=== PATIENT | female | born 1955 | race Caucasian/White ===

== ENCOUNTER 2017-12-30 17:06 | Emergency (ER) | payer MEDICARE, MEDICAID ==
[2017-12-30 18:01] LABS: BASOPHILS 0.5 % (0-2); EOSINOPHILS 1.7 % (0-7); HEMATOCRIT 36.1 % (36.0-48.0); HEMOGLOBIN 11.6 g/dL (12-16); IMMATURE GRANULOCYTES 0.3 % (0-5); LYMPHOCYTES 22.7 % (15-50); MCH 23.8 pg (26.0-34.0); MCHC 32.1 g/dL (31.0-37.0); MEAN PLATELET VOLUME 9.9 fL (7.4-10.4); NEUTROPHILS 67.8 % (40-80); RBC 4.88 10x6/uL (4.00-5.40); RDW 15.9 % (11.5-14.5); WBC 10.4 10x3/uL (4.8-10.8)
[2017-12-30 18:06] LABS: PLATELET COUNT 261 10x3/uL (130-400)
[2017-12-30 18:20] LABS: ALBUMIN 3.3 g/dL (3.4-5.0); ALKALINE PHOSPHATASE 93 U/L (46-116); ALT (SGPT) 17 U/L (10-68); BILIRUBIN - TOTAL 0.21 mg/dL (0.2-1.3); CALC OSMOLALITY 275 mosm/kg (275-300); CALCIUM 9.3 mg/dL (8.5-10.1); CARBON DIOXIDE 25.8 mmol/L (21.0-32.0); CHLORIDE - SERUM 102 mmol/L (98-107); CREATININE - SERUM 0.9 mg/dL (0.6-1.3); GLUCOSE 157 mg/dL (74-106); POTASSIUM - SERUM 3.4 mmol/L (3.5-5.1); PROTEIN - SERUM 7.7 g/dL (6.4-8.2); SODIUM 136 mmol/L (136-145); UREA NITROGEN 15 mg/dL (7-18); eGFR NON AFRICAN AMERICAN 67 mL/min (90-120)
[2017-12-30 18:29] LABS: CKMB 0.6 U/L (0.0-3.6); CREATINE KINASE 58 UL (21-215); TROPONIN-I < 0.017 ng/mL (0.000-0.060)
== END 2017-12-30 23:00 | disposition home or self-care (01) ==
LOC: D.ER 17:06
PROVIDERS: Family Medicine
DX: R07.9 Chest pain, unspecified (principal); R07.89 Other chest pain; E11.9 Type 2 diabetes mellitus without complications; F17.200 Nicotine dependence, unspecified, uncomplicated

== ENCOUNTER 2019-02-18 09:00 | Outpatient (CLI) | payer MEDICARE, MEDICAID ==
--- NOTE | ~2019-02-18 | HEMODYNAMI ---
PATIENT:AXEL HERNANDEZ MEDICAL RECORD: [id number] : 55 LOCATION:D.CAT ADMISSION DATE: 02/18/19 Generatedon:02/18/201911:34 Patient name: AXEL HERNANDEZ Patient #: [id number] SSN: : 1955 Date of study: 02/18/2019 Page: Of Hemodynamic Procedure Report Patient Data Patient Demographics Procedure consent was obtained First Name: AXEL Gender: Female Last Name: MARY : 1955 [facility] Initial: NAMITA Age: 63 year(s) Patient #: [id number] Race: Unknown Additional ID: [id number] Contact details [address]: [address] [place] [address] State: [place] City: [place] Zip code: [address] Past Medical History Allergies Allergen Reaction Date Comments Reported Other allergy 02/18/2019 PCN,Sulfa, Admission Admission Data Admission Date: 02/18/2019 Admission Time: 9:00 Lab Results Lab Result Date: 02/18/2019 Lab Result Time: 0:00 Biochemistry Name Units Result Min Max BUN mg/dl 13 --(--*-)-- 7 18 Creatinine mg/dl 0.9 --(-*--)-- 0.6 1.3 CBC Name Units Result Min Max Hematocrit % 26.2 *-(----)-- 42 54 Hemoglobin g/dl 7.9 *-(----)-- 13.5 17.5 Procedure Procedure Types Cath Procedure Diagnostic Procedure LHC LHC w/Coronaries FFR/IVUS Intra-Coronary IVUS Initial Sedation Charges Moderate Sedation up to 15 minutes PCI Procedure Coronary Stent Coronary Stent Initial x2 Procedure Description Procedure Date Procedure Date: 02/18/2019 Procedure Start Time: 11:14 Procedure End Time: 11:34 Procedure Staff Name Function Patel Bush MD Performing Physician Edi Connors RT Monitor Loida Rodriguez RT Scrub Yee See RN Nurse Procedure Data Cath Procedure Fluoroscopy Diagnostic fluoroscopy Total fluoroscopy Time: 4.7 time: 4.7 min min Diagnostic fluoroscopy Total fluoroscopy dose: 515 dose: 515 mGy mGy Contrast Material Contrast Material Type Amount (ml) Isovue 300 93 Entry Location Entry Primary Successful Side Size Upsize Upsize Entry Closure Succes sful Closure Location (Fr) 1 (Fr) 2 (Fr) Remarks Device Remarks Femoral Right 5 Fr 6 Fr Exoseal artery Short Estimated blood loss: 10 ml Diagnostic catheters Device Type Used For End Catheter Placement MULTIPACK Pigtail 5 Fr Procedure catheter MULTIPACK JL 4.0 5Fr Procedure catheter MULTIPACK 3DRC 5Fr Procedure catheter Procedure Complications No complications Procedure Medications Medication Administration Route Dosage 0.9% NaCl I.V. 100 ml/hr Oxygen etCO2 Nasal cannula 2 l/min Lidocaine 2% added to field 20 Heparin Flush Bag added to field 2 bags (1000units/500ml NS) Versed I.V. 2 mg Fentanyl I.V. 50 mcg Versed I.V. 2 mg Fentanyl I.V. 50 mcg Heparin Bolus I.V. 4000 units Integrilin (Bolus 9 ml 2mg/ml) Plavix P.O. 600 mg Hemodynamics Rest HGB: 7.9 (g/dl) Heart Rate: 90 (bpm) Snapshots Pre Cath Intra NCS Post Cath Vital Signs Time Heart Resp SPO2 etCO2 NIBP (mmHg) Rhythm Pain Sedation Rate (ipm) (%) (mmHg) Status Level (bpm) 10:55:34 92 12 100 36.8 161/93(120) NSR 0 (11) 10(A) , No pain 11:00:15 87 13 100 24.8 150/90(108) NSR 0 (11) 10(A) , No pain 11:04:51 89 15 100 30 154/85(112) NSR 0 (11) 10(A) , No pain 11:09:26 87 34 98 15.7 144/82(106) NSR 0 (11) 10(A) , No pain 11:13:58 92 17 100 22.5 142/95(109) NSR 0 (11) 10(A) , No pain 11:18:32 93 16 99 31.5 152/83(109) NSR 0 (11) 9(A) , No pain 11:23:07 98 19 99 27.7 145/87(106) NSR 0 (11) 9(A) , No pain 11:27:40 96 19 99 30 136/88(108) NSR 0 (11) 9(A) , No pain 11:32:12 94 17 99 29.3 137/82(113) NSR 0 (11) 10(A) , No pain Medications Time Medication Route Dose Verified Delivered Reason Notes Effectiveness by by 10:58:55 0.9% NaCl I.V. 100 Patel Yee used for ml/hr Rachelle See mechanical operator 10:59:02 Oxygen etCO2 2 Patel Yee used for Nasal l/min Rachelle See procedure cannula RN 10:59:07 Lidocaine 2% added 20ml Patel Patel for local to vial Rachelle Bush MD anesthetic field 10:59:11 Heparin Flush added 2 Patel Patel used for Bag to bags Rachelle Bush MD procedure (1000units/500ml field NS) 11:11:29 Versed I.V. 2 mg Patel Yee for sedation Rachelle See RN 11:11:35 Fentanyl I.V. 50 Patel Yee for sedation mcg Rachelle See RN 11:15:32 Versed I.V. 2 mg Patel Yee for sedation Rachelle See RN 11:15:36 Fentanyl I.V. 50 Patel Yee for sedation mcg Rachelle See RN 11:20:16 Heparin Bolus I.V. 4000 Patel Yee for verif ied units Rachlele See anticoagulation with Dr. SHAH [facility] 11:20:29 Integrilin 9 ml Patel Yee for waste d (Bolus 2mg/ml) Rachelle See antiplatelet 1mL RN therapy 11:20:43 Plavix P.O. 600 Patel Yee for mg Rachelle See antiplatelet RN therapy Procedure Log Time Note 10:35:16 Yee See RN sent for patient. Start room use. 10:45:24 Time tracking: Regular hours (M-F 7:00 - 5:00) 10:45:29 Plan of Care:Hemodynamics will remain stable., Cardiac rhythm will remain stable., Comfort level will be maintained., Respiratory function will remain adequate., Patient/ family verbilizes understanding of procedure., Procedure tolerated without complication., Recovers from procedure without complications.. 10:45:33 Patient received from Pre/Post Procedure Room to CCL 1 Alert and oriented. Tansferred to table in Supine position. 10:45:35 Warm blankets applied, and quincy hugger turned on for patient comfort. 10:45:35 Correct patient and procedure confirmed by team. 10:45:37 Signed procedure consent form obtained from patient. 10:45:38 ECG and BP/O2 sat monitors applied to patient. 10:53:50 Vital chart was started 10:58:46 Baseline sample Acquired. 10:58:51 Rhythm: sinus rhythm 10:58:53 Full Disclosure recording started 10:58:55 0.9% NaCl 100 ml/hr I.V. was administered by Yee See RN; used for procedure; 10:59:02 Oxygen 2 l/min etCO2 Nasal cannula was administered by Yee See RN; used for procedure; 10:59:07 Lidocaine 2% 20ml vial added to field was administered by Patel Bush MD; for local anesthetic; 10:59:11 Heparin Flush Bag (1000units/500ml NS) 2 bags added to field was administered by Patel Bush MD; used for procedure; 10:59:13 H&P Date Dictated: 02/14/2019 Within 30 days and on chart., H&P Addendum completed by physician on day of procedure. (MUST COMPLETE FOR ALL OUTPATIENTS). 11:01:55 Pre-procedure instructions explained to patient. 11:01:55 Pre-op teaching completed and patient verbalized understanding. 11:01:56 Family in waiting room. 11:01:58 Patient NPO since Midnight. 11:02:12 Patient allergic to Other allergyPCN,Sulfa, 11:02:15 Is the patient allergic to Iodine/contrast media? No. 11:02:18 Is patient on blood thinner?No 11:02:19 Patient diabetic? Yes. 11:02:20 If diabetic: On Metformin? No 11:02:22 Previous problem with sedation/anesthesia? No ? 11:02:23 Snore? Yes 11:02:24 Sleep apnea? No 11:02:25 Deviated septum? No 11:02:25 Opens mouth fully? Yes 11:02:26 Sticks out tongue? Yes 11:02:28 Airway obstruction? Yes COPD 11:02:32 Dentures? Yes OUT 11:02:35 Pre procedure: right dorsailis pedis pulse 2+ Normal; easily identifiable; not easily obliterated 11:02:37 Modified Brendan's test Ulnar > 7 seconds. 11:02:41 Patient pain scale 0/10 ?. 11:02:49 IV patent on arrival in left forearm with 0.9% NaCl at [facility]. 11:: Lab Result : BUN 13 mg/dl 11:: Lab Result : Creatinine 0.9 mg/dl 11:: Lab Result : Hemoglobin 7.9 g/dl 11:: Lab Result : Hematocrit 26.2 % 11::24 Lab results completed and on chart. 11:03:26 Right groin area was prepped with chlora-prep and draped in sterile fashion 11::27 Alarms reviewed by R. N. 11:03:27 Sharps counted by scrub and verified by R.N. 11:03:29 Use device set Femoral Dx 11:03:30 ACIST Syringe (50801) opened to sterile field. 11:03:31 Bag Decanter (2002S) opened to sterile field. 11:03:31 Medline Cath Pack ([id number]) opened to sterile field. 11:03:32 ACIST Hand Control (96465) opened to sterile field. 11:03:32 ACIST Manifold (33815) opened to sterile field. 11:03:33 Tegaderm 4 x 4 (1626W) opened to sterile field. 11:03:34 SHEATH 5FR Paradox (OGJ553) opened to sterile field. 11:03:35 DIAGNOSTIC Multipack 5Fr catheter set (CF4809) opened to sterile field. 11:03:36 DIAGNOSTIC WIRE .035 260cm J wire (083786) opened to sterile field. 11:11:03 Physician arrived 11:: --------ALL STOP TIME OUT------ 11:11:03 Final Timeout: patient, procedure, and site verified with staff and physician. All members of the team are in agreement. 11:11:05 Right groin site verified by team. 11:11:07 Maximum allowable Isovue 300 dose 300ml. Physician notified. (300ml for normal creatinines. For patients with creatinine of 1.7 or higher multiply weight(kg) x 5 divided by creatinine.) 11:11:11 Fire Safety Assessment: A--An alcohol-based skin anteseptic being used preoperatively., C--Open oxygen or nitrous oxide is being used., D--An ESU, laser, or fiber-optic light is being used. 11:11:13 Physical assessment completed. ASA score P 2 - A patient with mild systemic disease as per Patel Bush MD. 11:11:15 Sedation plan: IV Moderate Sedation Medication:Versed, Fentanyl 11:11:29 Versed 2 mg I.V. was administered by Yee See RN; for sedation; 11:11:35 Fentanyl 50 mcg I.V. was administered by Yee See RN; for sedation; 11:14:12 Procedure started. 11:14:27 Local anesthetic to right femoral artery with Lidocaine 2% by Patel Bush MD.INITIAL ACCESS ONLY 11:14:37 A 5 Fr sheath was inserted into the Right Femoral artery 11:15:26 Zero performed for pressure channel P1 11:15:29 Zero performed for pressure channel P1 11:15:32 Versed 2 mg I.V. was administered by Yee See RN; for sedation; 11:15:32 Zero performed for pressure channel P1 11:15:35 Zero performed for pressure channel P1 11:15:36 Fentanyl 50 mcg I.V. was administered by Yee See RN; for sedation; 11:15:51 A MULTIPACK Pigtail 5 Fr catheter was advanced over the wire and used for Procedure. 11:15:59 LV gram done using GUTIERREZ 11:16:01 Injector settings: Ml/sec: 10, Volume: 20, 11:16:02 LV hemodynamics recorded. 11:16:06 EF : 60 % 11:16:10 Catheter exchanged over wire. 11:16:13 A MULTIPACK JL 4.0 5Fr catheter was advanced over the wire and used for Procedure. 11:16:34 LCA angiography performed. 11:17:22 Catheter exchanged over wire. 11:17:25 A MULTIPACK 3DRC 5Fr catheter was advanced over the wire and used for Procedure. 11:17:39 INFLATOR Merit BasixCompak (UX6781) opened to sterile field. 11:17:39 SHEATH 6FR Paradox (CIF735) opened to sterile field. 11:17:46 CHOICE PT Extra Support 182cm wire ([id number]) opened to sterile field. 11:17:46 [place] IVUS Catheter (67046N) opened to sterile field. 11:17:54 RCA angiography performed. 11:18:00 Catheter removed. 11:18:07 Sheath upsized to a 6 Fr Short. 11:20:16 Heparin Bolus 4000 units I.V. was administered by Yee See RN; for anticoagulation; verified with Dr. Bush 11:20:29 Integrilin (Bolus 2mg/ml) 9 ml was administered by Yee See RN; for antiplatelet therapy; wasted 1mL 11:20:33 GUIDE 6FR HS I catheter (LA6HSI) opened to sterile field. 11:20:34 GUIDE 6FR XBC 3.5 ([id number]) opened to sterile field. 11:20:43 Plavix 600 mg P.O. was administered by Yee See RN; for antiplatelet therapy; 11:21:28 6 Fr XBC 3.5 guide catheter was inserted over the wire 11:21:32 CHOICE PT ES wire advanced. 11:21:44 Wire advanced across lesion. 11:21:47 IVUS catheter advanced over wire. 11:26:30 IVUS pass to LAD lesion performed. 11:26:31 IVUS catheter removed over wire. 11:27:51 Place stent Inflation Number: 1 A INTEGRITY RX 4.0 x 12 stent ([id number]) was prepped and advanced across the Prox LAD. The stent was deployed at 17 DAVID for 0:10 (min:sec). 11:29:11 Stent catheter was removed intact over wire. 11:29:12 Wire removed. 11:29:13 Guide catheter removed. 11:29:19 6 Fr HS1 guide catheter was inserted over the wire 11:29:48 CHOICE PT ES wire advanced. 11:29:49 Wire advanced across lesion. 11:30:49 Place stent Inflation Number: 1 A INTEGRITY 4.0 x 18 stent ([id number]) was prepped and advanced across the Mid RCA. The stent was deployed at 17 DAVID for 0:10 (min:sec). 11:31:06 Wire removed. 11:31:06 Guide catheter removed. 11:31:13 EXOSEAL 6Fr (EX600) opened to sterile field. 11:31:29 Sheath removed intact; hemostasis achieved with Exoseal to the Right Femoral artery. 11:31:32 Procedure ended.(Physican Out) 11:32:39 Fluoroscopy time 04.70 minutes. 11:32:43 Fluoroscopy dose: 515 mGy 11:32:43 Flurop Dose total: 515 11:32:47 Contrast amount:Isovue 300 93ml. 11:32:48 Sharps counted by scrub and verified by R.N. 11:32:49 Insertion/operative site no bleeding no hematoma. 11:32:51 Post-op/insertion site Right Femoral artery dressed using a 4 x 4 and Tegaderm. 11:32:54 Post right femoral artery:stable, soft, clean and dry 11:32:55 Post Procedure Pulses reassessed and unchanged 11:32:57 Post-procedure physical assessment completed. ASA score P 2 - A patient with mild systemic disease as per Patel Bush MD. 11:32:59 Post procedure rhythm: unchanged. 11:33:03 Estimated blood loss: 10 ml 11:33:04 Post procedure instruction explained to patient.Patient verbalizes understanding. 11:33:04 Patient needs reinforcement of post procedure teaching. 11:33:28 Procedure type changed to Cath procedure, Diagnostic procedure, LHC, LHC w/Coronaries, FFR/IVUS, Intra-Coronary IVUS Initial, Sedation Charges, Moderate Sedation up to 15 minutes, PCI procedure, Coronary Stent, Coronary Stent Initial x2 11:34:17 Procedure and supply charges have been captured, reviewed, submitted and are correct. 11:34:24 Procedure Complication : No complications 11:34:25 Vital chart was stopped 11:34:26 See physician's report for complete and final results. 11:34:27 Report given to Pre/Post Procedure Room. 11:34:29 Patient transfered to Pre/Post Procedure Room with Stretcher. 11:34:31 Procedure ended. 11:34:31 Full Disclosure recording stopped 11:34:33 End room use (Document Last) Intervention Summary Intervention Notes Time ActionType Lesion and Equipment Action# Pressure Duration Attributes Used 11:27:51 Place stent Prox LAD INTEGRITY RX 1 17 00:10 4.0 x 12 stent ([id number]) 11:30:49 Place stent Mid RCA INTEGRITY 1 17 00:10 4.0 x 18 stent ([id number]) Device Usage Item Name Manufacture Quantity Catalog Number Hospital Part Current Mini mal Lot# / Charge Number Stock Stock Serial# Code ACIST Acist 1 26652 406444 098091 347905 20 Syringe Medical (53678) Systems Inc Bag Decanter Microtek 1 2001S 451226 10490 016740 5 (2001S) Medical Inc. Medline Cath Medline 1 [id number] 227129 61153 309573 5 Pack ([id number]) ACIST Hand Acist 1 50025 469748 861676 639716 5 Control Medical (14537) Systems Inc ACIST Acist 1 96157 032885 348814 624856 5 Manifold Medical (40304) Systems Inc Tegaderm 4 x 3M 1 1626W 875174 085342 657793 5 4 (1626W) SHEATH 5FR Terumo 1 QPO258 390362 220018 194305 5 Paradox (WBU762) DIAGNOSTIC Cardinal 1 AI0963 909332 54045 282670 30 Multipack Health 5Fr catheter set (IT6113) DIAGNOSTIC [place] 1 760486 502132 853320 336725 30 WIRE .035 260cm J wire (592891) MULTIPACK Cardinal 1 960033 5 Pigtail 5 Fr Health catheter MULTIPACK JL Cardinal 1 143754 5 4.0 5Fr Health catheter MULTIPACK Cardinal 1 070198 5 3DRC 5Fr Health catheter INFLATOR Merit 1 GN2988 843612 207442 057424 15 LynxFit for Google Glass Medical BasixCompak (GG0920) SHEATH 6FR Terumo 1 ASQ586 772159 236648 323021 40 Paradox (CVF498) CHOICE PT [place] 1 [id number] 707160 487663 044332 5 Extra Scientific Support 182cm wire ([id number]) [place] 1 53127Z 582170 255491 691392 8 [place] IVUS Catheter (89020R) GUIDE 6FR HS Medtronic 1 LA6HSI 574906 48038 576234 1 I catheter (LA6HSI) GUIDE 6FR Cardinal 1 37506255 752266 48645 171662 5 XBC 3.5 Health (28007846) INTEGRITY RX Medtronic 1 [id number] 523488 471179 978110 5 [id number] 4.0 x 12 stent ([id number]) INTEGRITY Medtronic 1 [id number] 236707 582970 249052 5 [id number] 4.0 x 18 stent ([id number]) EXOSEAL 6Fr Cardinal 1 EX600 978878 591530 340221 10 (EX600) Health Signature Audit [place] Stage Time Signature Unsigned Intra-Procedure 02/18/2019 Edi Connors 11:34:53 AM RT(R) Signatures Monitor : Edi Connors RT Signature : Date : Time : [id number] [place] [address]
[2019-02-18] MEDS ORDERED: GLIMEPIRIDE4 MG PO (09:19)
[2019-02-18] MEDS ORDERED: KLONOPIN1 MG PO (09:21)
[2019-02-18] MEDS ORDERED: HYDROCODON-ACE1 EAC7 PO (09:22)
[2019-02-18] MEDS ORDERED: CATAPRES0.1 MG PO (09:24)
[2019-02-18 09:35] VITALS: BP 141/94; BMI 31.2
[2019-02-18 09:50] LABS: BASOPHILS 0.7 % (0-2); EOSINOPHILS 3.1 % (0-7); HEMATOCRIT 26.2 % (36.0-48.0); HEMOGLOBIN 7.9 g/dL (12-16); IMMATURE GRANULOCYTES 0.2 % (0-5); LYMPHOCYTES 23.3 % (15-50); MCHC 30.2 g/dL (31.0-37.0); MCV 64.1 fL (80.0-100.0); MEAN PLATELET VOLUME 9.9 fL (7.4-10.4); MONOCYTES 10.3 % (2-11); NEUTROPHILS 62.4 % (40-80); RBC 4.09 10x6/uL (4.00-5.40); RDW 16.7 % (11.5-14.5); WBC 5.8 10x3/uL (4.8-10.8)
[2019-02-18 10:02] LABS: ANION GAP 11.6 mmol/L (8-16); CALCIUM 8.7 mg/dL (8.5-10.1); CARBON DIOXIDE 26.8 mmol/L (21.0-32.0); CREATININE - SERUM 0.9 mg/dL (0.6-1.3); POTASSIUM - SERUM 3.4 mmol/L (3.5-5.1)
[2019-02-18 10:06] LABS: MCH 19.3 pg (26.0-34.0); PLATELET COUNT 367 10x3/uL (130-400)
[2019-02-18] MEDS ORDERED: BAYER CHEWABLE81 MG PO (11:40)
[2019-02-18] MEDS ORDERED: PLAVIX75 MG PO (11:40)
--- NOTE | 2019-02-20 14:39 | OP ---
PATIENT NAME: AXEL HERNANDEZ MEDICAL RECORD: [id number] :55 LOCATION:D.CAT ADMISSION DATE: SURGEON: VANESSA PINK MD DATE OF OPERATION: 02/18/2019 PROCEDURES: 1. PTCA stent LAD. 2. PTCA stent RCA. 3. Intravascular ultrasound. 4. Left heart catheterization. 5. Selective coronary angiography. 6. Left ventriculogram. INDICATION: Angina and coronary artery disease. PROCEDURE IN DETAIL: After informed consent was obtained and after a detailed description of the risks, benefits as well as alternative therapies, the patient elected to proceed with angiogram and angioplasty. The right femoral area was prepped and draped in normal sterile fashion. Right femoral artery was cannulated via modified Seldinger technique with placement of 6-Welsh sheath. All catheters exchanged through this sheath. FINDINGS: The left ventriculogram was performed in standard 30-degree GUTIERREZ view, reveals good cardiac wall motion throughout all segments. Overall ejection fraction estimated 60%. SELECTIVE CORONARY ANGIOGRAPHY: 1. Left main is with no significant angiographic disease. 2. Left anterior descending has 60% stenosis confirmed by intravascular ultrasound proximally. 3. Left circumflex has moderate irregularities, but no flow-limiting stenosis. 4. Right coronary artery has 70% stenosis mid vessel. PTCA STENT OF THE LAD: The stent used was a 4.0 x 12 mm Integrity. Result was 0% residual stenosis. PTCA STENT OF THE RCA: The stent used was a 4.0 x 18 mm Integrity. Result was 0% residual stenosis. OVERALL IMPRESSION: Successful PTCA stent of the LAD and RCA, both going from 60% to 70% initial stenosis to 0% residual. TRANSINT:[id number] Voice Confirmation ID: [id number] DOCUMENT ID: [id number] VANESSA PINK MD at 1439 CC: [id number] DICTATION DATE: 02/18/19 1137 [employer] FAC[employer] MEMBER: 02/18/19 1604 [facility] CLI 02/18/19 [place] [id number]
== END 2019-02-18 17:14 | disposition home or self-care (01) ==
LOC: D.CATH 09:00
PROVIDERS: Internal Medicine Interventional Cardiology
DX: I25.119 Atherosclerotic heart disease of native coronary artery with unspecified angina pectoris (principal); Z01.812 Encounter for preprocedural laboratory examination

== ENCOUNTER → 2019-07-11 07:37 | Outpatient (CLI) | payer MEDICARE, MEDICAID ==
[~2019-07-11 07:37] MED LIST: BAYER CHEWABLE81 MG PO; CATAPRES0.1 MG PO; GLIMEPIRIDE4 MG PO; HYDROCODON-ACE1 EAC7 PO; KLONOPIN1 MG PO; PLAVIX75 MG PO
--- NOTE | 2019-07-13 10:22 | ST ---
PATIENT:AXEL HERNANDEZ MEDICAL RECORD: [id number] SEX: F LOCATION:[facility] ORDER #: ADMISSION DATE: 07/11/19 AGE OF PATIENT: 64 REFERRING PHYSICIAN: INTERPRETING PHYSICIAN: VANESSA PINK MD DATE OF SERVICE: 07/11/2019 INDICATION: Angina, shortness of breath, coronary artery disease, and hypertension. She was exercised on standard Lexiscan protocol with 27 mCi of sestamibi injected at peak stress, 10 mCi was used previously for rest images. FINDINGS: Gated SPECT reveals a preserved ejection fraction at 75% with good wall motion and thickening and brightening throughout all segments. SPECT IMAGING: Cardiolite was used as myocardial perfusion agent. There is reversibility anteriorly and apically. This includes basal, mid, apical anterior segments as well as the apex itself. The degree of reversibility is mild to moderate. The amount of myocardium involved is moderate to large. OVERALL IMPRESSION: This is an abnormal nuclear stress test, intermediate to high risk due to large amount of myocardium involved anteroapically with reversible ischemia suggestive of hemodynamically significant coronary artery disease. TRANSINT:[id number] Voice Confirmation ID: [id number] DOCUMENT ID: [id number] VANESSA PINK MD at 1022 CC: ARSNE WILLIS MD [id number] DICTATION DATE: 07/12/19 1438 VICE PRESIDENT [employer] SALES: 07/12/19 2356 DEP CLI 07/11/19 [facility] [address] [place] [address]
== END | disposition home or self-care (01) ==
LOC: D.HCCARDIO 07-01 10:00
PROVIDERS: ATTEND Internal Medicine Interventional Cardiology
DX: I25.119 Atherosclerotic heart disease of native coronary artery with unspecified angina pectoris (principal); I10 Essential (primary) hypertension; R06.02 Shortness of breath

== ENCOUNTER 2019-08-13 08:16 | Outpatient (CLI) | payer MEDICARE, MEDICAID ==
[~2019-08-13] VITALS: Ht 177.8 cm; Wt 100.9 kg
--- NOTE | ~2019-08-13 | HEMODYNAMI ---
PATIENT:AXEL HERNANDEZ MEDICAL RECORD: [id number] : 55 LOCATION:[facility] ADMISSION DATE: 08/13/19 Generatedon:08/13/201911:19 Patient name: AXEL HERNANDEZ Patient #: [id number] : 1955 Date of study: 08/13/2019 Page: Of Hemodynamic Procedure Report Patient Data Patient Demographics Procedure consent was obtained First Name: AXEL Gender: Female Last Name: MARY : 1955 [facility] Initial: NAMITA Age: 64 year(s) Patient #: [id number] Race: Unknown SSN: [id number] Additional ID: [id number] Contact details Address: [address] [place] [address] State: [place] City: [place] Zip code: [address] Past Medical History Allergies Allergen Reaction Date Comments Reported Other allergy 02/18/2019 PCN,Sulfa, Other allergy 08/13/2019 PCN, Sulfa Admission Admission Data Admission Date: 08/13/2019 Admission Time: 8:16 Arrival Date: 08/13/2019 Arrival Time: 0:00 Admit Source: Other Insurance Payor: Private health insurance, Medicaid [facility] #: [id number] Height (in.): 69 BSA: 2.16 (m2) Height (cm.): 175.26 BMI: 32.64 (kg/m2) Weight (lbs.): 221 Weight (kg.): 100.24 Lab Results Lab Result Date: 08/13/2019 Lab Result Time: 0:00 Biochemistry Name Units Result Min Max BUN mg/dl 12 --(-*--)-- 7 18 Creatinine mg/dl 0.8 --(-*--)-- 0.6 1.3 CBC Name Units Result Min Max Hemoglobin g/dl 10.5 *-(----)-- 13.5 17.5 Procedure Procedure Types Cath Procedure Diagnostic Procedure LHC LHC w/Coronaries FFR/IVUS FFR Initial Intra-Coronary IVUS Initial Sedation Charges Moderate Sedation up to 30 minutes PCI Procedure Coronary Stent Coronary Stent Initial Procedure Description Procedure Date Procedure Date: 08/13/2019 Procedure Start Time: 10:38 Procedure End Time: 11:13 Procedure Staff Name Function Ramses Escobar RT Monitor Omar Rivas RN Nurse Patel Bush MD Performing Physician Loida Rodriguez RT Monitor Alyx Gates RT Scrub Procedure Data Cath Procedure Fluoroscopy Diagnostic fluoroscopy Total fluoroscopy Time: 7.5 time: 7.5 min min Diagnostic fluoroscopy Total fluoroscopy dose: dose: 1462 mGy 1462 mGy Contrast Material Contrast Material Type Amount (ml) Isovue 300 100 Entry Location Entry Primary Successful Side Size Upsize Upsize Entry Closure Succes sful Closure Location (Fr) 1 (Fr) 2 (Fr) Remarks Device Remarks Femoral Right 5 Fr Exoseal artery Estimated blood loss: 10 ml Diagnostic catheters Device Type Used For End Catheter Placement MULTIPACK Pigtail 5 Fr Procedure catheter MULTIPACK JL 4.0 5Fr Procedure catheter MULTIPACK 3DRC 5Fr Procedure catheter Procedure Complications No complications Procedure Medications Medication Administration Route Dosage Oxygen etCO2 Nasal cannula 2 l/min Lidocaine 2% added to field 20 Heparin Flush Bag added to field 2 bags (1000units/500ml NS) 0.9% NaCl I.V. 100 ml/hr Versed I.V. 2 mg Fentanyl I.V. 100 mcg Versed I.V. 2 mg Fentanyl I.V. 100 mcg Heparin Bolus I.V. 4000 units Versed I.V. 1 mg Hemodynamics Rest BSA: 2.16 (m2) HGB: 10.5 (g/dl) O2 Consumption: Estimated: 210.57 (ml/min) O2 Co nsumption indexed: Estimated:97.49 (ml/min/m) Heart Rate: 80 (bpm) Pressure Samples Time Site Value (mmHg) Purpose Heart Use Rate(bpm) 10:42 AO 120/81(99) Snapshot 80 Snapshots Pre Cath Intra NCS Post Cath Vital Signs Time Heart Resp SPO2 etCO2 NIBP (mmHg) Rhythm Pain Sedation Rate (ipm) (%) (mmHg) Status Level (bpm) 10:26:37 80 14 98 30.2 142/85(110) NSR 0 (11) 10(A) , No pain 10:30:47 77 14 96 33.9 128/79(109) NSR 0 (11) 10(A) , No pain 10:34:58 81 16 97 27.1 125/81(99) NSR 0 (11) 10(A) , No pain 10:39:13 75 15 97 22.6 119/66(84) NSR 0 (11) 10(A) , No pain 10:43:22 81 11 93 22.6 120/70(88) NSR 0 (11) 9(A) , No pain 10:47:30 88 13 94 23.4 125/79(105) NSR 0 (11) 9(A) , No pain 10:52:13 90 17 96 36.2 120/78(98) NSR 0 (11) 9(A) , No pain 10:56:19 88 15 93 21.8 127/81(107) NSR 0 (11) 9(A) , No pain 11:00:31 88 12 96 31.7 122/75(95) NSR 0 (11) 9(A) , No pain 11:04:41 91 16 96 30.9 133/81(103) NSR 0 (11) 9(A) , No pain 11:08:52 89 17 97 15.8 127/82(100) NSR 0 (11) 10(A) , No pain Medications Time Medication Route Dose Verified Delivered Reason Notes Effectiveness by by 10:25:40 Oxygen etCO2 2 Patel Buffie used for Nasal l/min Rachelle Rivas RN procedure cannula 10:25:46 Lidocaine 2% added 20ml Patel Patel for local to vial Rachelle Bush MD anesthetic field 10:25:53 Heparin Flush added 2 Patel Patel used for Bag to bags Rachelle Bush MD procedure (1000units/500ml field NS) 10:26:02 0.9% NaCl I.V. 100 Patel Buffie Per physician ml/hr Rachelle Rivas RN 10:36:33 Versed I.V. 2 mg Patel Buffie for sedation Rachelle Rivas RN 10:36:38 Fentanyl I.V. 100 Patel Buffie for sedation mcg Rachelle Rivas RN 10:41:06 Versed I.V. 2 mg Patel Buffie for sedation Rachelle Rivas RN 10:41:10 Fentanyl I.V. 100 Patel Buffie for sedation mcg Rachelle Rivas RN 10:49:13 Heparin Bolus I.V. 4000 Patel Nelson for verif ied units Rachelle Rivas RN anticoagulation with dr bush 11:00:06 Versed I.V. 1 mg Patel Nelson for sedation Rachelle Rivas RN Procedure Log Time Note 9:41:46 Informed consent obtained and on chart 9:45:06 Arrival Date: 08/13/2019 12:00:00 AM 9:45:27 Loida Rodriguez RT(R) sent for patient. Start room use. 9:45:44 Admit Source: Other 9:45:45 Insurance Payor : Private health insurance, Medicaid 9:46:02 Patient Height : 69 inches 9:46:08 Patient Weight : 221 lbs 9:47:30 Lab Result : Hemoglobin 10.5 g/dl 9:47:30 Lab Result : Creatinine 0.8 mg/dl 9:47:30 Lab Result : BUN 12 mg/dl 9:51:58 LV Function : 9:57:50 ACC Patient presents with Stable Angina CCS Anginal Class 1--Ordinary physical activity does not cause angina, angina occurs with strenuos, rapid, or prolonged activity.. 10:00:15 ACCPatient has been prescribed/administered the following anti-anginal medication within the last 2 weeks: None 10:00:21 Procedure Status Elective Heart Cath (OP). 10:00:46 Time tracking: Regular hours (M-F 7:00 - 5:00) 10:00:53 Plan of Care:Hemodynamics will remain stable., Cardiac rhythm will remain stable., Comfort level will be maintained., Respiratory function will remain adequate., Patient/ family verbilizes understanding of procedure., Procedure tolerated without complication., Recovers from procedure without complications.. 10:00:59 Patient received from Pre/Post Procedure Room to CCL 2 Alert and oriented. Tansferred to table in Supine position. 10:01:15 H&P Date Dictated: 07/23/2019 Within 30 days and on chart.. 10:04:01 2) 60-89 Mildly reduced kidney function, and other findings (as for stage 1) point to kidney disease. 10:04:47 Maximum allowable contrast dose (3.7 X eGFR X 0.75)210 ml. 10:16:35 Warm blankets applied, and quincy hugger turned on for patient comfort. 10:16:36 Correct patient and procedure confirmed by team. 10:16:37 ECG and BP/O2 sat monitors applied to patient. 10:16:40 Rhythm: sinus rhythm 10:16:44 Pre-procedure instructions explained to patient. 10:16:45 Pre-op teaching completed and patient verbalized understanding. 10:16:48 Family in waiting room. 10:17:26 Patient NPO since Midnight. 10:17:43 Patient allergic to Other allergyPCN, Sulfa 10:17:46 Is the patient allergic to Iodine/contrast media? No. 10:25:30 Vital chart was started 10:25:40 Oxygen 2 l/min etCO2 Nasal cannula was administered by Omar Rivas RN; used for procedure; Verbal order read back and verified. 10:25:46 Lidocaine 2% 20ml vial added to field was administered by Patel Bush MD; for local anesthetic; Verbal order read back and verified. 10:25:53 Heparin Flush Bag (1000units/500ml NS) 2 bags added to field was administered by Patel Bush MD; used for procedure; Verbal order read back and verified. 10:26:02 0.9% NaCl 100 ml/hr I.V. was administered by Omar Rivas RN; Per physician; Verbal order read back and verified. 10:29:18 Was the patient premedicated? Yes 10:29:20 Is patient on blood thinner?Yes 10:29:24 ACC The patient was administered the following blood thiners within the last 24 hours: ACCPlavix 10:29:31 Patient diabetic? Yes. 10:29:33 If diabetic: On Metformin? No 10:29:49 Previous problem with sedation/anesthesia? No ? 10:29:53 Snore? Yes 10:29:55 Sleep apnea? No 10:30:04 Pre procedure: right dorsailis pedis pulse 2+ Normal; easily identifiable; not easily obliterated 10:30:17 Patient pain scale 0/10 ?. 10:30:25 IV patent on arrival in left forearm with 0.9% NaCl at [facility]. 10:30:33 Lab results completed and on chart. 10:30:38 Right groin area was prepped with chlora-prep and draped in sterile fashion 10:30:40 Sharps counted by scrub and verified by R.N. 10:30:40 Alarms reviewed by R. N. 10:35:58 Physician arrived 10:35:59 --------ALL STOP TIME OUT------ 10:36:00 Final Timeout: patient, procedure, and site verified with staff and physician. All members of the team are in agreement. 10:36:03 Right groin site verified by team. 10:36:08 Fire Safety Assessment: A--An alcohol-based skin anteseptic being used preoperatively., C--Open oxygen or nitrous oxide is being used., D--An ESU, laser, or fiber-optic light is being used. 10:36:16 Physical assessment completed. ASA score P 2 - A patient with mild systemic disease as per Patel Bush MD. 10:36:33 Versed 2 mg I.V. was administered by Omar Rivas RN; for sedation; Verbal order read back and verified. 10:36:38 Fentanyl 100 mcg I.V. was administered by Omar Rivas RN; for sedation; Verbal order read back and verified. 10:38:19 Use device set Femoral Dx 10:38:21 Tegaderm 4 x 4 ([id number]) opened to sterile field. 10:38:22 Bag Decanter (2002S) opened to sterile field. 10:38:22 ACIST Syringe (92331) opened to sterile field. 10:38:23 Medline Cath Pack ([id number]) opened to sterile field. 10:38:24 ACIST Manifold (96796) opened to sterile field. 10:38:24 ACIST Hand Control (29996) opened to sterile field. 10:38:26 DIAGNOSTIC Multipack 5Fr catheter set ([id number]) opened to sterile field. 10:38:27 EMERALD Guide Wire (797-423) opened to sterile field. 10:38:27 SHEATH 5FR [place] (LIC148) opened to sterile field. 10:38:42 Full Disclosure recording started 10:38:42 Procedure started. 10:38:46 Local anesthetic to right femoral artery with Lidocaine 2% by Patel Bush MD.INITIAL ACCESS ONLY 10:40:59 A 5 Fr sheath was inserted into the Right Femoral artery 10:41:04 A MULTIPACK Pigtail 5 Fr catheter was advanced over the wire and used for Procedure. 10:41:06 Versed 2 mg I.V. was administered by Omar Rivas RN; for sedation; Verbal order read back and verified. 10:41:10 Fentanyl 100 mcg I.V. was administered by Omar Rivas RN; for sedation; Verbal order read back and verified. 10:41:14 Zero performed for pressure channel P1 10:41:17 Zero performed for pressure channel P1 10:41:28 LV angiography performed. 10:41:31 LV gram done using GUTIERREZ 10:41:44 EF : 55 % 10:41:48 Injector settings: Ml/sec: 10, Volume: 20, 10:41:50 Catheter removed. 10:41:53 Zero performed for pressure channel P1 10:41:55 Zero performed for pressure channel P1 10:41:57 Zero performed for pressure channel P1 10:42:00 Zero performed for pressure channel P1 10:42:04 Zero performed for pressure channel P1 10:42:16 A MULTIPACK JL 4.0 5Fr catheter was advanced over the wire and used for Procedure. 10:42:44 LCA angiography performed. 10:43:12 Baseline sample Acquired. 10:45:27 Catheter removed. 10:45:33 A MULTIPACK 3DRC 5Fr catheter was advanced over the wire and used for Procedure. 10:45:42 RCA angiography performed. 10:45:45 ACCDominant side:Right 10:45:46 Catheter removed. 10:46:47 Use device set TAU PCI 10:46:55 [place] Verrata Plus pressure wire ([id number]) opened to sterile field. 10:47:18 INFLATOR Merit BasixCompak (GU6109) opened to sterile field. 10:48:33 GUIDE 5FR AR2.0 catheter ([id number]) opened to sterile field. 10:48:56 5 Fr AR 2 guide catheter was inserted over the wire 10:49:11 FFR/IFR wire advanced. 10:49:13 Wire advanced across lesion. 10:49:13 Heparin Bolus 4000 units I.V. was administered by Omar Rivas RN; for anticoagulation; verified with dr bush Verbal order read back and verified. 10:49:22 mRCA lesion measured at 0.89 with IFR 10:50:10 [place] Eagleye IVUS Catheter (30570E) opened to sterile field. 10:51:02 IVUS catheter advanced over wire. 10:51:27 IVUS unable to advance due not having enough support. 10:51:28 IVUS catheter removed over wire. 10:51:35 Wire removed. 10:51:48 CHOICE PT Extra Support 182cm wire ([id number]) opened to sterile field. 10:52:03 CPTXS wire advanced. 10:52:30 Wire advanced across lesion. 10:53:38 IVUS catheter advanced over wire. 10:53:44 IVUS unable to advance due not having enough support. 10:54:10 ACC Pre-intervention IMANI Flow is 3. 10:54:16 Pre PCI Site: [facility] mRCA has 70% stenosis. 10:54:32 IVUS catheter removed over wire. 10:54:57 The INDERJIT RX 4.0 x 12 stent ([id number]) was advanced then removed because of failure to cross lesion 10:57:10 The Mozec Rx 3.5 x 14 balloon was advanced and then removed because of failure to cross lesion 10:59:39 CHOICE PT Floppy J 300cm guide wire ([id number]) opened to sterile field. 11:00:06 Versed 1 mg I.V. was administered by Omar Rivas RN; for sedation; Verbal order read back and verified. 11:00:06 CHOICE PT FLOPPY wire advanced. 11:00:08 Wire advanced across lesion. 11:00:32 Inflate balloon Inflation number: 1 A Mozec Rx 3.5 x 14 balloon was prepped and advanced across the Mid RCA 70, then inflated to 17 DAVID for 0:10 (min:sec) . 11:01:03 Inflation number: 2 The Mozec Rx 3.5 x 14 balloon was reinflated across the Mid RCA 70, to 15 DAVID for 0:10 (min:sec) . 11:02:00 Balloon removed over the wire. 11:02:51 CPTXS wire removed. 11:02:57 Place stent Inflation Number: 3 A INDERJIT RX 4.0 x 12 stent ([id number]) was prepped and advanced across the Mid RCA 70. The stent was deployed at 17 DAVID for 0:10 (min:sec) 0. 11:03:45 Stent catheter was removed intact over wire. 11:03:46 Wire removed. 11:03:47 Guide catheter removed. 11:03:49 ACC Post-intervention IMANI Flow is 3. 11:03:55 Post PCI Site: [facility] mRCA has 0% stenosis. 11:04:25 EXOSEAL 5Fr (EX500) opened to sterile field. 11:04:35 Sheath removed intact; hemostasis achieved with Exoseal to the Right Femoral artery. 11:04:51 Procedure ended.(Physican Out) 11:04:57 Fluoroscopy time 07.50 minutes. 11:05:01 Fluoroscopy dose: 1462 mGy 11:05:01 Flurop Dose total: 1462 11:05:08 Dose Area Product 15769 mGy/cm. 11:05:12 Contrast amount:Isovue 300 100ml. 11:05:14 Maximum allowable dose exceeded? No. 11:05:15 Sharps counted by scrub and verified by R.N. 11:05:17 Insertion/operative site no bleeding no hematoma. 11:05:20 Post-op/insertion site Right Femoral artery dressed using a 4 x 4 and Tegaderm. 11:05:21 Post Procedure Pulses reassessed and unchanged 11:05:23 Post-procedure physical assessment completed. ASA score P 2 - A patient with mild systemic disease as per Patel Bush MD. 11:05:26 Post procedure rhythm: unchanged. 11:05:28 Estimated blood loss: 10 ml 11:06:42 Patient needs reinforcement of post procedure teaching. 11:06:42 Post procedure instruction explained to patient.Patient verbalizes understanding. 11:07:01 Procedure type changed to Cath procedure, Diagnostic procedure, LHC, C w/Coronaries, FFR/IVUS, FFR Initial, Intra-Coronary IVUS Initial, Sedation Charges, Moderate Sedation up to 30 minutes, PCI procedure, Coronary Stent, Coronary Stent Initial 11:07:25 Procedure and supply charges have been captured, reviewed, submitted and are correct. 11:07:30 Procedure Complication : No complications 11:08:23 ACT drawn and resulted at 173 seconds. (normal therapeutic range 180-240 seconds). 11:11:16 Vital chart was stopped 11:11:18 See physician's report for complete and final results. 11:11:23 Report given to Pre/Post Procedure Room. 11:13:14 Patient transfered to Pre/Post Procedure Room with Stretcher. 11:13:15 Full Disclosure recording stopped 11:13:15 Procedure ended. 11:13:38 End room use (Document Last) Intervention Summary Intervention Notes Time ActionType Lesion and Equipment Used Action# Pressure Duration Attributes 10:54:57 Discard INDERJIT RX 4.0 x Stent 12 stent ([id number]) 10:57:10 Discard Mozec Rx 3.5 x Balloon 14 balloon 11:00:32 Inflate Mid RCA Mozec Rx 3.5 x 1 17 00:10 balloon 14 balloon 11:01:03 Reinflate Mid RCA Mozec Rx 3.5 x 2 15 00:10 balloon 14 balloon 11:02:57 Place stent Mid RCA INDERJIT RX 4.0 x 3 17 00:10 12 stent ([id number]) Device Usage Item Name Manufacture Quantity Catalog Number Hospital Part Current Minimal Lot# / Charge Number Stock Stock Serial# Code Tegaderm 4 x 4 3M 1 1626W [id number] 676789 638012 5 (1626W) ACIST Syringe Acist 1 81039 047862 093805 227781 20 (82403) Medical Systems Inc Bag Decanter Microtek 1 2002S 639832 55120 806066 5 (2002S) Medical Inc. Medline Cath Medline 1 [id number] 207817 54935 654645 5 Pack ([id number]) ACIST Hand Acist 1 31592 228129 944467 008558 5 Control Medical (11179) Systems Inc ACIST Manifold Acist 1 86132 716290 012352 482769 5 (14315) Medical Systems Inc DIAGNOSTIC Cardinal 1 DM1174 475200 21941 608504 30 Multipack 5Fr Health catheter set (TP0607) SHEATH 5FR Terumo 1 RIZ326 384453 517637 800472 5 [place] (DDG324) EMERALD Guide Cardinal 1 502-455 789933 820417 738912 5 Wire (502-455) Health MULTIPACK Cardinal 1 624932 5 Pigtail 5 Fr Health catheter MULTIPACK JL Cardinal 1 424430 5 4.0 5Fr Health catheter MULTIPACK 3DRC Cardinal 1 871971 5 5Fr catheter Health [place] 1 19050B 453018 501589328 226656 5 Verrata Plus pressure wire (99806A) INFLATOR Merit Merit 1 UZ0891 032278 861524 755522 15 [facility] Medical (QY3447) GUIDE 5FR Medtronic 1 BS7HG01 425801 187792 946395 1 AR2.0 catheter (NP4ZA55) [place] 1 42556K 357734 954004 675411 8 [place] Eagley[place] IVUS Catheter (60009C) CHOICE PT [place] 1 [id number] 161058 673141 410479 5 Extra Support Scientific 182cm wire ([id number]) INDERJIT RX 4.0 x Medtronic 1 [id number] 879974 1732911 611223 5 [id number] 12 stent ([id number]) Mozec Rx 3.5 x Cardinal 1 [id number] 154053 171679540 934856 5 UMOD56 14 balloon Health CHOICE PT [place] 1 [id number] 109574 781834 312768 5 Floppy J 300cm Scientific guide wire ([id number]) EXOSEAL 5Fr Cardinal 1 EX500 922885 496985 456133 10 (EX500) Health Signature Audit [place] Stage Time Signature Unsigned Intra-Procedure 08/13/2019 Ramses Escobar 11:16:54 AM RT(R) Intra-Procedure 08/13/2019 Omar Rivas RN 11:18:34 AM Intra-Procedure 08/13/2019 Patel Bush 11:19:38 AM [place] [address] [place] [address]
[2019-08-13 09:04] VITALS: BP 143/81; Ht 177.8 cm; Wt 100.9 kg
[2019-08-13 09:20] LABS: BASOPHILS 0.9 % (0-2); EOSINOPHILS 3.2 % (0-7); HEMATOCRIT 33.7 % (36.0-48.0); HEMOGLOBIN 10.5 g/dL (12-16); IMMATURE GRANULOCYTES 0.2 % (0-5); LYMPHOCYTES 26.3 % (15-50); MCH 23.3 pg (26.0-34.0); MCHC 31.2 g/dL (31.0-37.0); MCV 74.9 fL (80.0-100.0); MEAN PLATELET VOLUME 9.8 fL (7.4-10.4); MONOCYTES 8.4 % (2-11); PLATELET COUNT 301 10x3/uL (130-400); RDW 15.3 % (11.5-14.5); WBC 6.6 10x3/uL (4.8-10.8)
[2019-08-13 09:36] LABS: ALT (SGPT) 17 U/L (10-68); CALC OSMOLALITY 283 mosm/kg (275-300); CALCIUM 8.8 mg/dL (8.5-10.1); CARBON DIOXIDE 27.5 mmol/L (21.0-32.0); CHLORIDE - SERUM 104 mmol/L (98-107); CHOL - HDL RATIO 3.1 ratio (2.3-4.1); CHOLESTEROL, TOTAL 167 mg/dL (0-200); CREATININE - SERUM 0.8 mg/dL (0.6-1.3); GLUCOSE 241 mg/dL (74-106); HDL CHOLESTEROL 54 mg/dL (32-96); LDL CHOLESTEROL 94 mg/dL (0-100); LDL-HDL RATIO 1.7 ratio (1.5-3.5); POTASSIUM - SERUM 3.7 mmol/L (3.5-5.1); SODIUM 138 mmol/L (136-145); TRIGLYCERIDE 99 mg/dL (30-200); UREA NITROGEN 12 mg/dL (7-18); eGFR NON AFRICAN AMERICAN 76 mL/min (90-120)
--- NOTE | 2019-08-13 11:20 | NUR ---
PATIENT ARRIVED TO ROOM 7, PLACED ON CM. VSS. RIGHT GROIN DRESSING IS CDI,NO S/S OF BLEEDING OR HEMATOMA. WILL CONTINUE TO MONITOR.
--- NOTE | 2019-08-13 11:35 | NUR ---
PATIENT INTERMITTENTLY RESTING, FAMILY PRESENT AT BEDSIDE. VSS ON ROOM AIR. RIGHT GROIN DRESSING IS CDI, NO S/S OF BLEEDING OR HEMATOMA. NO C/O PAIN, NUMBNESS, OR TINGLING. NO N/V. PATIENT TOLERATING PO FLUIDS.
--- NOTE | 2019-08-13 12:05 | NUR ---
PATIENT RESTING, VSS ON ROOM AIR. RIGHT GROIN DRESSING IS CDI, NO S/S OF BLEEDING OR HEMATOMA. NO N/V.
--- NOTE | 2019-08-13 12:35 | NUR ---
SEE ORDERS FOR ACETAMINOPHEN R/T HEADACHE. VSS ON ROOM AIR. RIGHT GROIN DRESSING IS CDI, NO S/S OF BLEEDING OR HEMATOMA. NO N/V.
--- NOTE | 2019-08-13 13:05 | NUR ---
PHYSICIAN AT BEDSIDE TO UPDATE PATIENT, MADE AWARE OF SLIGHT CHEST DISCOMFORT PATIENT DESCRIBES "KIND OF LIKE INDIGESTION THAT STARTED AFTER I DRANK'. NO FURTHER ORDERS AT THIS TIME. VSS ON ROOM AIR. RIGHT GROIN DRESSING IS CDI, NO S/S OF BLEEDING OR HEMATOMA.
--- NOTE | 2019-08-13 13:35 | NUR ---
PATIENT RESTING, STATES THAT SHE IS IN NO PAIN. VSS ON ROOM AIR. RIGHT GROIN DRESSING IS CDI, NO S/S OF BLEEDING OR HEMATOMA. NO N/V.
--- NOTE | 2019-08-13 14:05 | NUR ---
HEAD OF BED ELEVATED TO 30 DEGREES. RIGHT GROIN DRESSING IS CDI, NO S/S OF BLEEDING OR HEMATOMA. NO C/O PAIN, NUMBNESS, OR TINGLING. TOLERATING PO FLUIDS AND FOOD, NO N/V. FAMILY PRESENT AT BEDSIDE.
--- NOTE | 2019-08-13 14:35 | NUR ---
HEAD OF BED ELEVATED TO 90 DEGREES. RIGHT GROIN DRESSING IS CDI, NO S/S OF BLEEDING OR HEMATOMA. NO C/O PAIN, NUMBNESS, OR TINGLING. VSS ON ROOM AIR. NO N/V.
--- NOTE | 2019-08-13 15:00 | NUR ---
RIGHT GROIN DRESSING IS CDI, NO S/S OF BLEEDING OR HEMATOMA. NO C/O PAIN, NUMBNESS, OR TINGLING. NO N/V. IV REMOVED. WRITTEN AND VERBAL INSTRUCTIONS REGARDING DISCHARGE INSTRUCTIONS AND MEDICATION COMPLIANCE GIVEN TO PATIENT AND FAMILY, BOTH VOICE UNDERSTANDING.
--- NOTE | 2019-08-13 15:10 | NUR ---
PATIENT VOIDED WITHOUT DIFFICULTY. PATIENT TRANSPORTED VIA WHEELCHAIR TO CAR WITH FAMILY DRIVING, ALL BELONGINGS WITH PATIENT.
--- NOTE | 2019-08-15 13:30 | OP ---
PATIENT NAME: AXEL HERNANDEZ MEDICAL RECORD: [id number] :55 LOCATION:D.CAT ADMISSION DATE: SURGEON: VANESSA PINK MD DATE OF OPERATION: 08/13/2019 PROCEDURES: 1. PTCA stent RCA. 2. IFR RCA. 3. Intravascular ultrasound RCA. 4. Left heart catheterization. 5. Selective coronary angiography. 6. Left ventriculogram. INDICATION: Angina and coronary artery disease. PROCEDURE IN DETAIL: After informed consent was obtained and after a detailed description of risks, benefits as well as alternative therapies, the patient elected to proceed with angiogram and angioplasty. The right femoral area was prepped and draped in normal sterile fashion. Right femoral artery was cannulated via modified Seldinger technique with placement of 5-[place] sheath. All catheters exchanged through this sheath. FINDINGS: Left ventriculogram was performed in standard 30-degree GUTIERREZ view, reveals good cardiac wall motion, ejection fraction 55% to 60%. SELECTIVE CORONARY ANGIOGRAPHY: 1. Left main is with no significant angiographic disease. 2. Left anterior descending has previously placed stent that is widely patent. No significant restenosis. No disease elsewise throughout the LAD or its branches. 3. Left circumflex has moderate irregularities, but no flow-limiting stenosis. 4. Right coronary artery has a previously placed stent with a hazy area of 50% to 70% stenosis in the distal portion of the stent. The IFR was abnormal with 0.89. We attempted to get an intravascular ultrasound catheter in there to delineate exactly where the plaque started and stopped; however, an IVUS catheter would not go. We attempted direct stenting; however, direct stenting would not go, hence there was more stenosis there than angiographically apparent. We were able to get a 3.5 balloon in it, ballooned up to 21 atmospheres, then we are able to get a 4.0 x 12 [place] stent there up to 21 atmospheres. Result was 0% residual stenosis. OVERALL IMPRESSION: Successful percutaneous transluminal coronary angioplasty stent of the right coronary artery going from at least 70% initial stenosis with an abnormal IFR to 0% residual stenosis. TRANSINT:[id number] Voice Confirmation ID: [id number] DOCUMENT ID: [id number] OPERATIVE REPORT [id number] AXEL HERNANDEZ VANESSA PINK MD at 1330 CC: [id number] DICTATION DATE: 08/13/19 1109 PRESS LEADER: 08/13/19 1157 DEP CLI 08/13/19 [facility] [address] [place] [address]
== END 2019-08-13 15:10 ==
LOC: D.CATH 08:16
PROVIDERS: ATTEND Internal Medicine Interventional Cardiology
DX: I25.119 Atherosclerotic heart disease of native coronary artery with unspecified angina pectoris (principal)
CPT/HCPCS: 93458; 92928; 93571; C9600

== ENCOUNTER 2021-02-17 10:45 | Inpatient (IN) | payer MEDICARE, MEDICAID ==
[~2021-02-17] VITALS: Ht 177.8 cm; Wt 98.4 kg
[2021-02-17] MEDS ORDERED: VOLTAREN25 MG PO (10:51)
[2021-02-17 11:20] VITALS: BP 116/57
[2021-02-17 11:25] LABS: CARBON DIOXIDE 23.5 mmol/L (21.0-32.0); CREATININE - SERUM 1.2 mg/dL (0.6-1.3); POTASSIUM - SERUM 4.5 mmol/L (3.5-5.1)
[2021-02-17 11:31] LABS: ALBUMIN 3.4 g/dL (3.4-5.0); BILIRUBIN - TOTAL 0.29 mg/dL (0.2-1.3); PROTEIN - SERUM 6.9 g/dL (6.4-8.2)
--- NOTE | 2021-02-17 11:41 | NUR ---
EKG DONE OCCULT STOOL OBTAINED/RESULTS NEGATIVE IV SITED IN RIGHT FOREARM
[2021-02-17 11:45] LABS: APTT 24.9 SECONDS (22.8-39.4); INR 1.16 (0.85-1.17); PROTIME 13.7 SECONDS (11.6-15.0)
[2021-02-17 12:04] LABS: BASOPHILS 0.9 % (0-2); EOSINOPHILS 6.1 % (0-7); HEMATOCRIT 22.8 % (36.0-48.0); IMMATURE GRANULOCYTES 0.4 % (0-5); LYMPHOCYTE ABS# 1.78 10x3/uL (1.18-3.74); LYMPHOCYTES 22.7 % (15-50); MCHC 28.9 g/dL (31.0-37.0); MCV 67.3 fL (80.0-100.0); MEAN PLATELET VOLUME 10.1 fL (7.4-10.4); MONOCYTES 9.6 % (2-11); NEUTROPHIL ABS# 4.73 10x3/uL (1.56-6.13); NEUTROPHILS 60.3 % (40-80); RBC 3.39 10x6/uL (4.00-5.40); RDW 19.2 % (11.5-14.5); WBC 7.8 10x3/uL (4.8-10.8)
[2021-02-17 12:08] LABS: HEMOGLOBIN 6.6 g/dL (12-16); MCH 19.5 pg (26.0-34.0); PLATELET COUNT 376 10x3/uL (130-400)
--- NOTE | 2021-02-17 13:20 | NUR ---
FIRST UNIT OF BLOOD STARTED
[2021-02-17 13:26] VITALS: BP 135/80
--- NOTE | 2021-02-17 14:00 | NUR ---
REPORT CALLED TO LEAH SHAH ON [facility]
[2021-02-17 14:20] LABS: % SATURATION 2 % (15-55); IRON 10 ug/dl (35-150); TOTAL IRON BIND CAPACITY 409 ug/dl (260-445); UNSAT IRON BIND CAPACITY 399 ug/dl (150-375)
--- NOTE | 2021-02-17 14:43 | NUR ---
TRANSPORTED PT TO [facility] VIA WC / BLOOD INFUSING
[2021-02-17 14:57] VITALS: BP 115/77; BMI 31.2
[2021-02-17] MEDS ORDERED: NEURONTIN 300300 MG PO (17:40)
--- NOTE | 2021-02-17 18:33 | NUR ---
UNIT 2 OF 2 PRBC'S COMPLETE. PATIENT REMAINS WITHOUT REACTIONS. PATIENT INSTRUCTED OF URINE AND STOOL SPECIMEN NEEDED.SUPPLIES TO ROOM. SHE REPORTS BM IN ER.CONT PLAN OF CARE
[2021-02-17 18:40] VITALS: BP 135/67
[2021-02-17] MEDS ORDERED: HYDROCODON-ACE1 EAC7 PO (19:44)
[2021-02-17 22:29] LABS: BILIRUBIN NEGATIVE (NEGATIVE); KETONE NEGATIVE (NEGATIVE); NITRITE NEGATIVE (NEGATIVE); UROBILINOGEN NORMAL mg/dL (< 2)
[2021-02-17 22:31] LABS: HEMATOCRIT 25.8 % (36.0-48.0); HEMOGLOBIN 7.8 g/dL (12-16); MCH 20.8 pg (26.0-34.0); MCHC 30.2 g/dL (31.0-37.0); MCV 68.8 fL (80.0-100.0); MEAN PLATELET VOLUME 9.7 fL (7.4-10.4); RBC 3.75 10x6/uL (4.00-5.40); RDW 19.3 % (11.5-14.5); WBC 7.9 10x3/uL (4.8-10.8)
[2021-02-18] VITALS: BP 132/67
--- NOTE | 2021-02-18 00:59 | NUR ---
I have reviewed this patient and I concur with the Shift Assessment completed by the Licensed Practical Nurse today this shift.
--- NOTE | 2021-02-18 01:00 | NUR ---
PT PROVIDE UA/STOOL SAMPLE. SHE REQUEST PAIN MED THAT SHE TAKES EVERYNIGHT FOR CHRONIC BACK PAIN. WILL CONTACT PROVIDER TO RE-START HOME MEDS.
[2021-02-18 04:00] VITALS: BP 153/71
[2021-02-18 05:56] LABS: EOSINOPHILS 5.6 % (0-7); HEMATOCRIT 26.6 % (36.0-48.0); HEMOGLOBIN 7.9 g/dL (12-16); IMMATURE GRANULOCYTES 0.3 % (0-5); LYMPHOCYTE ABS# 2.32 10x3/uL (1.18-3.74); LYMPHOCYTES 30.4 % (15-50); MCH 20.6 pg (26.0-34.0); MCHC 29.7 g/dL (31.0-37.0); MCV 69.3 fL (80.0-100.0); MEAN PLATELET VOLUME 9.7 fL (7.4-10.4); MONOCYTES 9.7 % (2-11); NEUTROPHIL ABS# 4.05 10x3/uL (1.56-6.13); PLATELET COUNT 354 10x3/uL (130-400); RBC 3.84 10x6/uL (4.00-5.40); RDW 19.3 % (11.5-14.5); RETIC 1.62 % (0.45-2.28); WBC 7.6 10x3/uL (4.8-10.8)
[2021-02-18 06:28] LABS: % SATURATION 4 % (15-55); IRON 16 ug/dl (35-150); TOTAL IRON BIND CAPACITY 387 ug/dl (260-445); UNSAT IRON BIND CAPACITY 371 ug/dl (150-375)
[2021-02-18 06:31] LABS: ALBUMIN 2.9 g/dL (3.4-5.0); ANION GAP 15.7 mmol/L (8-16); BILIRUBIN - TOTAL 0.37 mg/dL (0.2-1.3); CALCIUM 8.3 mg/dL (8.5-10.1); CARBON DIOXIDE 22.3 mmol/L (21.0-32.0); CREATININE - SERUM 0.9 mg/dL (0.6-1.3); PROTEIN - SERUM 6.5 g/dL (6.4-8.2)
[2021-02-18 08:10] LABS: APTT 26.2 SECONDS (22.8-39.4); INR 1.1 (0.85-1.17); PROTIME 13.2 SECONDS (11.6-15.0)
[2021-02-18 08:42] VITALS: BP 159/73
--- NOTE | 2021-02-18 11:15 | NUR ---
ASSESSMENT PER FLOW SHEET. PATIENT IS WITHOUT DISTRESS.UNIT 1 OF 2 PRBC'S INITIATED. PATIENT IS WITHOUT REACTIONS. MONITOR FOR NEEDS.CALL LIGHT IN REACH.
[2021-02-18 13:00] VITALS: Ht 177.8 cm; Wt 98.4 kg
[2021-02-18 13:25] VITALS: BP 159/84
--- NOTE | 2021-02-18 14:15 | NUR ---
UNIT 1 OF 2 PRBCC'S COMPLETE. PATIENT TIS WITHOUT REACTIONS.
--- NOTE | 2021-02-18 14:20 | NUR ---
UNIT 2 OF 2 PRBC'S INITIATED. PATIENT IS WITHOUT REACTIONS.
[2021-02-18 17:41] VITALS: BP 160/87
[2021-02-18 19:02] LABS: BASOPHILS 1.1 % (0-2); EOSINOPHILS 4.3 % (0-7); HEMATOCRIT 35.2 % (36.0-48.0); IMMATURE GRANULOCYTES 0.1 % (0-5); LYMPHOCYTE ABS# 1.93 10x3/uL (1.18-3.74); LYMPHOCYTES 24.3 % (15-50); MCH 22.7 pg (26.0-34.0); MCHC 31.3 g/dL (31.0-37.0); MONOCYTES 10.8 % (2-11); NEUTROPHILS 59.4 % (40-80); PLATELET COUNT 348 10x3/uL (130-400); RBC 4.85 10x6/uL (4.00-5.40); RDW 20.3 % (11.5-14.5); WBC 7.9 10x3/uL (4.8-10.8)
[2021-02-18 19:03] LABS: MCV 72.6 fL (80.0-100.0)
== END 2021-02-18 20:23 | disposition home or self-care (01) | DRG 812 ==
LOC: D.ER 10:45 → D.MS 13:45
PROVIDERS: Family Medicine; ADMIT Emergency Medicine; ATTEND Emergency Medicine
DX: D50.9 Iron deficiency anemia, unspecified (principal); F17.203 Nicotine dependence unspecified, with withdrawal; E11.65 Type 2 diabetes mellitus with hyperglycemia; I10 Essential (primary) hypertension; R13.10 Dysphagia, unspecified; I25.119 Atherosclerotic heart disease of native coronary artery with unspecified angina pectoris; J44.9 Chronic obstructive pulmonary disease, unspecified; M18.9 Osteoarthritis of first carpometacarpal joint, unspecified; G89.29 Other chronic pain; M54.9 Dorsalgia, unspecified; Z78.0 Asymptomatic menopausal state; Z91.19 Patient's noncompliance with other medical treatment and regimen

== ENCOUNTER 2021-05-01 16:29 | Outpatient (CLI) | payer MEDICARE, MEDICAID ==
[~2021-05-01] VITALS: Ht 177.8 cm; Wt 96.4 kg
[~2021-05-01 16:29] MED LIST changes: +NEURONTIN 300300 MG PO; +VOLTAREN25 MG PO
[2021-05-01 16:36] VITALS: BP 141/84; Ht 177.8 cm; Wt 96.4 kg
[2021-05-01 19:55] LABS: BASOPHILS 1.4 % (0-2); EOSINOPHILS 1.8 % (0-7); HEMATOCRIT 33.1 % (36.0-48.0); HEMOGLOBIN 10.4 g/dL (12-16); LYMPHOCYTES 23.9 % (15-50); MCHC 31.4 g/dL (31.0-37.0); MCV 73.5 fL (80.0-100.0); MEAN PLATELET VOLUME 8.2 fL (7.4-10.4); MONOCYTES 6.9 % (2-11); PLATELET COUNT 332 10x3/uL (130-400); RDW 20.4 % (11.5-14.5); WBC 7.8 10x3/uL (4.8-10.8)
[2021-05-01 20:01] LABS: ANION GAP 14.2 mmol/L (8-16); CALCIUM 9.5 mg/dL (8.5-10.1); CARBON DIOXIDE 25.1 mmol/L (21.0-32.0); CREATININE - SERUM 0.9 mg/dL (0.6-1.3); INR 1.23 (0.85-1.17); POTASSIUM - SERUM 3.3 mmol/L (3.5-5.1); PROTIME 14.3 SECONDS (11.6-15.0)
[2021-05-01 20:07] LABS: ALBUMIN 3.8 g/dL (3.4-5.0); BILIRUBIN - TOTAL 0.32 mg/dL (0.2-1.3); PROTEIN - SERUM 7.8 g/dL (6.4-8.2)
--- NOTE | 2021-05-01 21:38 | NUR ---
RECEIVED TO ROOM VIA STRECHER FROM RR. AWAKE,ALERT.ORIENTED X 3. RESP EVEN AND UNLABORED. NO COMPLAINTS AT THIS TIME. IV TO LFA INTACT WITHOUT REDNESS OR EDEMA NOTED. VS 98.3 R 18 B/P 133/74 P 94,
--- NOTE | 2021-05-01 22:59 | NUR ---
VS. B/P 167/61, HR 96, T 98.5. R.18. PATIENT ALERT,ORIENTED. DENIES DISCOMFORT. NO S/S OF SWELLING OR DISTRESS NOTED. INSTRUCTED TO RETURN TO ER IF TIGHTNESS OR SWELLING OCCURS.PRESCRIPTION GIVEN WITH INTRUCTIONS TO CALL DR JEFFERS OFFICE FOR REPEAT EGD IN 6-8 WEEKS. STATES UNDERSTANDING. DISCHARGED TO HOME WITH FRIEND VIA [facility].
--- NOTE | 2021-05-02 08:53 | OP ---
PATIENT NAME: AXEL HERNANDEZ MEDICAL RECORD: [id number] LOCATION:[facility] ADMISSION DATE: SURGEON: ANT MONTOYA MD DATE OF OPERATION: 05/01/2021 PROCEDURE: Upper endoscopy. PREOPERATIVE DIAGNOSIS: Suspected food bolus. MEDICATION: Propofol per anesthesia. INDICATIONS: Ms. Hernandez is a female who has a history of having eaten a pork chop earlier today, she started feeling a sensation of it not passing through her esophagus with excessive salivation. Upper endoscopy was performed. The endoscope was advanced through the mouth and advanced to the second part of the duodenum. Upon entering the esophagus, there was a large food bolus extending throughout the length of the lower third of the esophagus. This food bolus was broken down with biopsy forceps, rat tooth forceps, [place] net and was broken down piecemeal and removed gently through the oral cavity. Once the bolus was small enough, it was pushed into the stomach. There was distal esophagitis and a distal esophageal stricture. In the gastric body was erythema consistent with gastritis. Random gastric biopsies were taken. The duodenum was normal. The patient tolerated the procedure well and there were no immediate complications. FINAL DIAGNOSES: 1. Large food bolus removed as outlined above. 2. Gastritis. 3. Esophageal stricture. This was not dilated at this time due to the severe edema and inflammation in the distal esophagus, gastritis, biopsies taken. Duodenum normal. PLAN: Check histology results. Advance diet. I will set up this patient for repeat EGD with dilation in 6 to 8 weeks. I did write a prescription for Protonix today and advised her to have a soft diet for 24 hours and to thoroughly cut up her food and dilation will be set up. TRANSINT:[id number] Voice Confirmation ID: [id number] DOCUMENT ID: [id number] ANT MONTOYA MD at 0853 CC: [id number] DICTATION DATE: 05/01/212129 ELEVATOR ATTENDANT: 05/01/212224 DEP CLI 05/01/21 [place] [id number] [place] [id number]
== END 2021-05-01 23:05 | disposition home or self-care (01) ==
LOC: D.ER 16:29 → D.MS 16:29 → D.ER 16:29 → D.MS 21:00 → EDSTATUS 21:07 → D.ER 23:05
PROVIDERS: Family Medicine; ATTEND Internal Medicine Gastroenterology
DX: T18.120A Food in esophagus causing compression of trachea, initial encounter (principal); K29.70 Gastritis, unspecified, without bleeding; K22.2 Esophageal obstruction